=== PATIENT | male | born 1940 | race Caucasian/White ===

== ENCOUNTER 2021-12-21 14:27 | Inpatient (IN) | payer MEDICARE ==
[~2021-12-21] VITALS: Ht 177.8 cm; Wt 64.4 kg
[2021-12-21 14:37] VITALS: BP_SYST 93
--- NOTE | 2021-12-21 14:46 | NUR ---
Patient to ER bed 06 to gown for evaluation. Side rails up. Report given to Randi CHEN.
--- NOTE | 2021-12-21 14:48 | NUR ---
Assumed care of pt who came from [facility] c/o urinary retention x two days. 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 Pt has hx of kidney transplant, afib, alzheimers disease. Pt is calm and cooperative, VSS, is at the bedside. Will continue to monitor and provide care as ordered.
--- NOTE | 2021-12-21 15:19 | NUR ---
ER Dr. Bruce at bedside examining patient.
[2021-12-21 16:06] LABS: BASOPHILS % (AUTO) 0.3 % (0.0-2.0); EOSINOPHILS # (AUTO) 0.1 K/uL (0.0-0.4); EOSINOPHILS % (AUTO) 1.4 % (0.0-4.0); HEMATOCRIT 42.3 % (36-54); LYMPHOCYTES # (AUTO) 1.5 K/uL (1.0-5.5); LYMPHOCYTES % (AUTO) 19.1 % (20.5-51.5); MEAN CORPUSCULAR VOLUME 94 fL (79.0-98.0); MONOCYTES # (AUTO) 0.8 K/uL (0.0-1.0); MONOCYTES % (AUTO) 9.6 % (1.7-9.3); NEUTROPHILS # (AUTO) 5.5 K/uL (1.8-7.7); NEUTROPHILS % (AUTO) 69.6 % (40.0-70.0); PLATELET COUNT (AUTO) 153 K/uL (130-430); RED BLOOD CELL COUNT(AUTO) 4.49 MIL/uL (4.2-6.2); RED CELL DISTRIBUTION WIDTH 17.4 % (9.0-15.0); WHITE BLOOD COUNT (AUTO) 7.8 K/uL (4.8-10.8)
[2021-12-21 16:39] LABS: ANION GAP 14 (5-15); CALCIUM 9.8 mg/dL (8.4-11.0); CHLORIDE 97 mmol/L (98-107); CREATININE 2.65 mg/dL (0.55-1.30); GLUCOSE 110 mg/dL (70-99); UREA NITROGEN, BLOOD 60 mg/dL (8-21)
[2021-12-21] MEDS ORDERED: SODIUM BICARBONATE 8.4% JECT 150 MEQ in D5W 1,000 ML IVP STA (16:47)
[2021-12-21 16:53] LABS: ALANINE AMINOTRANSFERASE 12 U/L (12-78); ASPARTATE AMINOTRANSFERASE 22 U/L (10-37); TOTAL BILIRUBIN 0.8 mg/dL (0.0-1.0)
[2021-12-21 16:56] LABS: POTASSIUM 7.1 mmol/L (3.5-5.1)
[2021-12-21] MEDS ORDERED: CALCIUM GLUCONATE 1 GM/10 ML VIAL IVP ONE (17:00)
[2021-12-21] MEDS ORDERED: DEXTROSE 50% JECT 50 ML DISP.SYRIN IVP ONE (17:00)
[2021-12-21] MEDS ORDERED: FUROSEMIDE 20 MG/2 ML VIAL IVP ONE (17:00)
[2021-12-21] MEDS ORDERED: NACL 0.9% 1,000 ML IV ONE (17:00)
[2021-12-21] MEDS ORDERED: INSULIN REGULAR, HUMAN 10 UNITS/0.1 ML, 3 ML VIAL IVP ONE (17:00)
[2021-12-21 17:17] LABS: BILIRUBIN,URINE NEGATIVE (NEGATIVE); BLOOD, URINE 4+ (NEGATIVE); CLARITY/URINE TURBID (CLEAR); COLOR,URINE BROWN (YELLOW); GLUCOSE,URINE NEGATIVE (NEGATIVE); KETONES,URINE NEGATIVE (NEGATIVE); LEUKOCYTE ESTERASE ,URINE 4+ (NEGATIVE); NITRITE, URINE NEGATIVE (NEGATIVE); PROTEIN URINE 3+ (NEGATIVE)
[2021-12-21 17:18] LABS: UROBILINOGEN,URINE 0.2 (0.2-1.0)
[2021-12-21 17:19] LABS: BACTERIA,URINE MODERATE /HPF (None Seen); RBC,URINE 20-50 /HPF (0-3); WBC,URINE >100 /HPF (0-3)
[2021-12-21] MEDS ORDERED: SODIUM BICARBONATE 8.4% JECT 50 MEQ/50 ML SYRINGE ONE ×2 (17:38→18:14)
[2021-12-21] MEDS ORDERED: cefTRIAXone 1 GM in D5W 50 ML IV ONE (19:30)
--- NOTE | 2021-12-21 19:45 | NUR ---
Note lance in EDM - 12/21/21 at 1954 by [id number] Admit bed requested Patient will be admitted to care of Dr. MAGDALENO Admitted to TELE unit. Diagnosis MANUEL, [facility] Inpatient (Yes or No) YES Observation (Yes or No) NO Orientation concerns or request close to nursing station (Yes or No) NO Covid Status PENDING On vent or bipap NO Isolation requirements NO Needs a sitter NO From Home (Yes or if No enter name of facility) YES Requires Dialysis (Yes or No) NO Med Rec Completed (Yes of No) PENDING MADDEN CALL
--- NOTE | 2021-12-21 19:45 | NUR ---
Pt A&O x1, only answers to name. Pt response to verbal stimuli, but is not answering all questions. VSS at this time. Safety precuations in place and connected to monitor.
--- NOTE | 2021-12-21 20:11 | NUR ---
Admit bed requested Patient will be admitted to care of Dr. MAGDALENO Admitted to TELE unit. Diagnosis MANUEL, [facility] Inpatient (Yes or No) YES Observation (Yes or No) NO Orientation concerns or request close to nursing station (Yes or No) NO Covid Status PENDING On vent or bipap NO Isolation requirements NO Needs a sitter NO From Home (Yes or if No enter name of facility) YES Requires Dialysis (Yes or No) NO Med Rec Completed (Yes of No) PENDING MADDEN CALL
--- NOTE | 2021-12-21 20:12 | NUR ---
Dr. Gee made aware that blood cultures have no been collected and will need to hold on IV antibiotics until cultures collected.
[2021-12-21] MEDS ORDERED: cefTRIAXone 1 GM VIAL ONE (20:19)
[2021-12-21] MEDS ORDERED: CIPR500T5 PO (20:32)
[2021-12-21] MEDS ORDERED: MELA5TAB12 PO (20:33)
[2021-12-21] MEDS ORDERED: WARF-66 PO (20:34)
[2021-12-21] MEDS ORDERED: LOPE2CAP PO (20:35)
[2021-12-21] MEDS ORDERED: FINA5TAB3 PO (20:36)
[2021-12-21] MEDS ORDERED: PRED5TAB PO (20:36)
[2021-12-21] MEDS ORDERED: AMIO200T66 PO (20:37)
[2021-12-21] MEDS ORDERED: VITA1CAP PO (20:38)
[2021-12-21] MEDS ORDERED: PANT20TA2 PO (20:40)
[2021-12-21] MEDS ORDERED: PRO40 PO (20:43)
[2021-12-21 20:48] LABS: ANION GAP 13 (5-15); CALCIUM 10.4 mg/dL (8.4-11.0); CHLORIDE 99 mmol/L (98-107); CREATININE 2.62 mg/dL (0.55-1.30); GLUCOSE 114 mg/dL (70-99); UREA NITROGEN, BLOOD 60 mg/dL (8-21)
[2021-12-21] MEDS ORDERED: XALEYE OP (20:54)
[2021-12-21] MEDS ORDERED: CEL250 PO (20:55)
[2021-12-21 20:57] LABS: POTASSIUM 6.3 mmol/L (3.5-5.1)
[2021-12-21] MEDS ORDERED: BRI.2% EACH EYE ×2 (20:58→21:00)
[2021-12-21] MEDS ORDERED: TACR0.5C PO (21:01)
[2021-12-21] MEDS ORDERED: ITRA100C3 PO (21:05)
[2021-12-21] MEDS ORDERED: DORZ10DR13 EACH EYE (21:06)
[2021-12-21] MEDS ORDERED: ASPI-1393 PO (21:07)
--- NOTE | 2021-12-21 21:08 | NUR ---
Medication reconciliation completed with information provided by [facility]. Any prior medication reconciliation on file was reviewed and corrected.
--- NOTE | 2021-12-21 21:40 | NUR ---
Admitted to TELE unit. Diagnosis MANUEL, [facility] Inpatient (Yes or No) YES Observation (Yes or No) NO Orientation concerns or request close to nursing station (Yes or No) NO Covid Status PENDING On vent or bipap NO Isolation requirements NO Needs a sitter NO From Home (Yes or if No enter name of facility) NO, FROM ARS FACILITY Requires Dialysis (Yes or No) NO Med Rec Completed (Yes of No) YES
[2021-12-21] MEDS ORDERED: SODIUM POLYSTYRENE SULFONATE 15 GM/60 ML UDBTL PO ONE (21:45)
[2021-12-21] MEDS: LOPERAMIDE HCL 2 MG CAPSULE PO SCH (22:00)
[2021-12-21] MEDS ORDERED: cefTRIAXone 1 GM IVPB PREMIX 50 ML IV ONE (22:00)
--- NOTE | 2021-12-21 22:10 | NUR ---
1 L NS AT BOLUS RATE STARTED PER VERBAL ORDER OF DR MAGDALENO
[2021-12-21] MEDS ORDERED: NACL 0.9% 1,000 ML IV SCH (22:15)
--- NOTE | 2021-12-21 23:05 | NUR ---
ADMISSION NOTE Received patient from ER via rui, received report from joe/ GUSTAVO. Patient admitted with diagnosis of acute kidney injury anddehydration. Patient oriented to hospital routine, call light, toileting and safety unable to follow due to medical condition
--- NOTE | 2021-12-21 23:10 | NUR ---
Patient will be admitted to care of Dr Lind. Admitted to Tele unit. Will go to room 105B. Belongings list completed. Complete and up to date summary report printed. SBAR report to be given at bedside with opportunity for questions.
[2021-12-21 23:21] VITALS: BP_SYST 110
[2021-12-21] MEDS ORDERED: PIPERACILLIN/TAZOBACTAM 2.25 GM VIAL IV ONE (23:25)
--- NOTE | 2021-12-21 23:30 | NUR ---
po MEDS given with aspiration precaution.
[2021-12-21] MEDS: NACL 0.9% 1,000 ML IV SCH (23:31)
[2021-12-21] MEDS: PIPERACILLIN/TAZO 2.25G/DEX-IS 50 ML IV SCH (23:32)
--- NOTE | 2021-12-22 02:30 | NUR ---
PATIENT RESTING: Patient resting quietly. No acute distress noted. Vital signs within normal range.,repositioned
[2021-12-22 02:33] VITALS: BP_SYST 100
[2021-12-22] MEDS ORDERED: PIPERACILLIN/TAZOBACTAM 2.25 GM VIAL IV ONE (03:28)
[2021-12-22 03:30] LABS: INR 3.2 (0.80-1.20)
[2021-12-22] MEDS: NACL 0.9% 1,000 ML IV SCH ×2 (03:30→15:30)
[2021-12-22 03:36] LABS: PROTHROMBIN TIME 30.2 SECS (9.5-12.5)
[2021-12-22 04:03] LABS: HEMATOCRIT 35.2 % (36-54); MEAN CORPUSCULAR VOLUME 93 fL (79.0-98.0); PLATELET COUNT (AUTO) 115 K/uL (130-430); RED BLOOD CELL COUNT(AUTO) 3.77 MIL/uL (4.2-6.2); RED CELL DISTRIBUTION WIDTH 17.5 % (9.0-15.0); WHITE BLOOD COUNT (AUTO) 5.3 K/uL (4.8-10.8)
[2021-12-22 04:04] LABS: BASOPHILS % (AUTO) 0.5 % (0.0-2.0); EOSINOPHILS # (AUTO) 0.1 K/uL (0.0-0.4); EOSINOPHILS % (AUTO) 2.8 % (0.0-4.0); LYMPHOCYTES # (AUTO) 0.9 K/uL (1.0-5.5); LYMPHOCYTES % (AUTO) 16.4 % (20.5-51.5); MONOCYTES # (AUTO) 0.5 K/uL (0.0-1.0); MONOCYTES % (AUTO) 9.5 % (1.7-9.3); NEUTROPHILS # (AUTO) 3.7 K/uL (1.8-7.7); NEUTROPHILS % (AUTO) 70.8 % (40.0-70.0)
[2021-12-22 04:06] LABS: ANION GAP 12 (5-15); CALCIUM 9.1 mg/dL (8.4-11.0); CHLORIDE 104 mmol/L (98-107); CREATININE 2.17 mg/dL (0.55-1.30); GLUCOSE 119 mg/dL (70-99); POTASSIUM 5.3 mmol/L (3.5-5.1); UREA NITROGEN, BLOOD 51 mg/dL (8-21)
[2021-12-22 04:15] LABS: ALANINE AMINOTRANSFERASE 17 U/L (12-78); ALBUMIN 2.3 g/dL (3.4-4.8); ASPARTATE AMINOTRANSFERASE 17 U/L (10-37); PHOSPHORUS 3.2 mg/dL (2.7-4.5); TOTAL BILIRUBIN 0.7 mg/dL (0.0-1.0)
--- NOTE | 2021-12-22 04:40 | NUR ---
Colostomy care given , no leaking.
[2021-12-22] MEDS: PIPERACILLIN/TAZO 2.25G/DEX-IS 50 ML IV SCH ×3 (05:06→19:00)
--- NOTE | 2021-12-22 05:08 | NUR ---
CONSULTATION PAGED/CALLED Reason for Consultation: ELEVATED TROP Person Who was Notified: CHARIS Consulting Physician: NEELAM Pin Or Clip Fastener Specialty: CARDIO Ordering Physician: RASTA
--- NOTE | 2021-12-22 05:16 | NUR ---
CONSULTATION PAGED/CALLED Reason for Consultation: RENAL FAILURE Person Who was Notified: CHARIS Consulting Physician: DR.BHASIN PATRICK FOR [employer]rentice Specialty: NEPHRO Ordering Physician:
[2021-12-22] MEDS ORDERED: NACL 0.9% 1,000 ML IV ONE (05:30)
[2021-12-22] MEDS: LOPERAMIDE HCL 2 MG CAPSULE PO SCH ×3 (06:00→20:16)
[2021-12-22 08:00] VITALS: BP_SYST 90
[2021-12-22] MEDS ORDERED: WARFARIN SODIUM 2 MG TABLET PO SCH (09:00)
[2021-12-22] MEDS ORDERED: NACL 0.9% 1,000 ML IV SCH (09:00)
[2021-12-22] MEDS: VITAMIN B COMPLEX 1 CAP/TAB PO SCH (09:00)
[2021-12-22] MEDS: FINASTERIDE 5 MG TABLET (PROSCAR) PO SCH (09:00)
[2021-12-22] MEDS ORDERED: BRIMONIDINE TARTRATE 0.2% 5 mL EYE DROPS EACH EYE SCH (09:00)
[2021-12-22] MEDS: PANTOPRAZOLE SODIUM 40 MG TAB PO SCH ×2 (09:00→20:15)
[2021-12-22] MEDS: TACROLIMUS ANHYDROUS 0.5 MG CAPSULE (PROGRAF) PO SCH ×2 (09:00→20:16)
[2021-12-22] MEDS: AMIODARONE HCL 200 MG TABLET PO SCH (09:00)
--- NOTE | 2021-12-22 10:00 | NUR ---
CM: faxed transfer to network order to [facility] de[facility], and requested the assignment to call back to discuss the dcp.
[2021-12-22] MEDS: predniSONE 5 MG TABLET PO SCH (11:12)
[2021-12-22 11:28] VITALS: BP_SYST 91
[2021-12-22] MEDS: BRIMONIDINE TARTRATE 0.2% 5 mL EYE DROPS EACH EYE SCH ×2 (14:15→20:15)
[2021-12-22] MEDS: DORZOLAMIDE HCL/TIMOLOL MAL. 10 ML EYE DROPS (COSOPT) EACH EYE SCH ×2 (14:15→20:17)
[2021-12-22] MEDS: mycophenolate mofetiL 250 MG CAPSULE PO SCH ×2 (14:16→20:16)
[2021-12-22] MEDS: ITRACONAZOLE 100 MG CAPSULE PO SCH (14:19)
[2021-12-22] MEDS: ASPIRIN 81 MG TABLET(ECOTRIN) PO SCH (15:20)
[2021-12-22 15:32] VITALS: BP_SYST 100
[2021-12-22] MEDS: LATANOPROST 2.5 ML DROPS (XALATAN) OP SCH ×2 (19:02→20:15)
[2021-12-22 20:00] VITALS: BP_SYST 112
[2021-12-22] MEDS ORDERED: MELATONIN 5 MG TABLET PO SCH (21:00)
--- NOTE | 2021-12-22 22:58 | NUR ---
Patient in bed. No acute distress noted. Turned repositioned q2. Will continue to monitor.
[2021-12-23] VITALS: BP_SYST 110
[2021-12-23] MEDS: PIPERACILLIN/TAZO 2.25G/DEX-IS 50 ML IV SCH ×3 (00:21→11:43)
[2021-12-23] MEDS: LOPERAMIDE HCL 2 MG CAPSULE PO SCH ×2 (04:15→14:04)
[2021-12-23 07:07] LABS: BASOPHILS % (AUTO) 0.4 % (0.0-2.0); EOSINOPHILS # (AUTO) 0.2 K/uL (0.0-0.4); EOSINOPHILS % (AUTO) 3.5 % (0.0-4.0); HEMATOCRIT 36.7 % (36-54); MEAN CORPUSCULAR VOLUME 96 fL (79.0-98.0); MONOCYTES # (AUTO) 0.3 K/uL (0.0-1.0); MONOCYTES % (AUTO) 6.7 % (1.7-9.3); NEUTROPHILS # (AUTO) 3.6 K/uL (1.8-7.7); NEUTROPHILS % (AUTO) 69.4 % (40.0-70.0); PLATELET COUNT (AUTO) 119 K/uL (130-430); RED BLOOD CELL COUNT(AUTO) 3.83 MIL/uL (4.2-6.2); RED CELL DISTRIBUTION WIDTH 17.5 % (9.0-15.0); WHITE BLOOD COUNT (AUTO) 5.2 K/uL (4.8-10.8)
[2021-12-23 07:14] LABS: ALANINE AMINOTRANSFERASE 17 U/L (12-78); ALBUMIN 2.4 g/dL (3.4-4.8); ANION GAP 12 (5-15); ASPARTATE AMINOTRANSFERASE 21 U/L (10-37); CALCIUM 8.9 mg/dL (8.4-11.0); CHLORIDE 105 mmol/L (98-107); CREATININE 1.86 mg/dL (0.55-1.30); GLUCOSE 90 mg/dL (70-99); TOTAL BILIRUBIN 0.5 mg/dL (0.0-1.0); UREA NITROGEN, BLOOD 38 mg/dL (8-21)
[2021-12-23 07:19] LABS: INR 3.5 (0.80-1.20); PROTHROMBIN TIME 32.9 SECS (9.5-12.5)
[2021-12-23 07:40] VITALS: BP_SYST 113
--- NOTE | 2021-12-23 07:40 | NUR ---
OPEN NOTE Received report from nightshift nurse. Patient is laying in bed resting. Patient A/O x 1-2, Polish speaking. No notable signs of pain, no sob, no distress. IV to Left foot 20 g patent on infusion pump. Colostomy bag intact and obrien bag draining to gravity yellow urine. Patient on Room air saturations at 99%. All needs met at this time. Safety checks in place, bed is locked in lowest position, will continue to monitor.
[2021-12-23] MEDS: FINASTERIDE 5 MG TABLET (PROSCAR) PO SCH (08:40)
[2021-12-23] MEDS: VITAMIN B COMPLEX 1 CAP/TAB PO SCH (08:40)
[2021-12-23] MEDS: TACROLIMUS ANHYDROUS 0.5 MG CAPSULE (PROGRAF) PO SCH (08:41)
[2021-12-23] MEDS: mycophenolate mofetiL 250 MG CAPSULE PO SCH (08:42)
[2021-12-23] MEDS: AMIODARONE HCL 200 MG TABLET PO SCH (08:42)
[2021-12-23] MEDS: ITRACONAZOLE 100 MG CAPSULE PO SCH (08:44)
[2021-12-23] MEDS: ASPIRIN 81 MG TABLET(ECOTRIN) PO SCH (08:44)
[2021-12-23] MEDS: PANTOPRAZOLE SODIUM 40 MG TAB PO SCH (08:44)
[2021-12-23] MEDS: predniSONE 5 MG TABLET PO SCH (08:44)
[2021-12-23] MEDS: BRIMONIDINE TARTRATE 0.2% 5 mL EYE DROPS EACH EYE SCH (08:45)
[2021-12-23] MEDS: DORZOLAMIDE HCL/TIMOLOL MAL. 10 ML EYE DROPS (COSOPT) EACH EYE SCH (08:45)
--- NOTE | 2021-12-23 08:57 | NUR ---
DISCHARGE PLANNING Faxed order stable to transfer order to [facility] along with updated pt info, direct nsg station #, Dr Diogo henderson, & my direct ph number.
[2021-12-23 09:43] LABS: INR 3.9 (0.80-1.20); PROTHROMBIN TIME 36.3 SECS (9.5-12.5)
--- NOTE | 2021-12-23 10:42 | NUR ---
Jeremiah Call Received a call from [facility] requesting report and baseline vitals. She stated she will be calling back with a pickup time once available. Patient and are aware.
[2021-12-23 11:42] VITALS: BP_SYST 102
--- NOTE | 2021-12-23 12:15 | NUR ---
Patient Rounds Patient is laying in bed resting. No notable signs of pain, no sob, no distress. Colostomy bag intact and obrien bag draining to gravity yellow urine. Patient on Room air saturations at 99%. All needs met at this time. Safety checks in place, bed is locked in lowest position, will continue to monitor.
--- NOTE | 2021-12-23 13:15 | NUR ---
Colostomy Bag Colostomy Bag noted to be leaking. Colostomy bag was changed.
[2021-12-23] MEDS: NACL 0.9% 1,000 ML IV SCH (13:30)
--- NOTE | 2021-12-23 13:43 | NUR ---
Daniels Call Spoke with Lupis from [place] stating that she will be calling me back with patient's room number, bean picker machine operator time and a phone number to call to give report. Awaiting further instructions.
--- NOTE | 2021-12-23 14:37 | NUR ---
DISCHARGE PLANNING Received call from pt's nurse, Daniels called & may have bed later today. [place] [facility] [place]. Spoke with pt and at bedside and both agreeable with transfer to [facility].
[2021-12-23 15:29] VITALS: BP_SYST 103
[2021-12-23 16:28] VITALS: BP_SYST 103
--- NOTE | 2021-12-23 16:32 | NUR ---
Transfer report Gave report to Yanet at [facility]. Patient to be picked up by 1700. If he is not picked up by then I will need to call Lupis SORIA at [facility] to get status update.
--- NOTE | 2021-12-23 17:50 | NUR ---
PT TRANSFERRED Report given to GUSTAVO Holt at 1630. Transfer packet with Transfer Orders and Medication Reconciliation form given to EMT with report. Exitcare provided. [facility] ID band removed, replaced with ID band with pt's name and . IV site intact per Jeremiah RN request, patent on SL. All belongings sent with patient. Patient left floor via gurney escorted by EMT in no distress.
--- NOTE | 2021-12-24 08:19 | NUR ---
Dispo code 02
== END 2021-12-23 17:51 | disposition short-term general hospital (02) | DRG 698 ==
LOC: SED 14:27 → STU 20:07
PROVIDERS: ADMIT Internal Medicine; ATTEND Internal Medicine
DX: T86.13 Kidney transplant infection (principal); E43 Unspecified severe protein-calorie malnutrition; G93.41 Metabolic encephalopathy; N17.0 Acute kidney failure with tubular necrosis; D84.9 Immunodeficiency, unspecified; E87.1 Hypo-osmolality and hyponatremia; N12 Tubulo-interstitial nephritis, not specified as acute or chronic; N39.0 Urinary tract infection, site not specified; E86.0 Dehydration; E87.5 Hyperkalemia; I48.0 Paroxysmal atrial fibrillation; N18.9 Chronic kidney disease, unspecified; Z20.822 Contact with and (suspected) exposure to COVID-19; D63.8 Anemia in other chronic diseases classified elsewhere; I50.9 Heart failure, unspecified; Y83.0 Surgical operation with transplant of whole organ as the cause of abnormal reaction of the patient, or of later complication, without mention of misadventure at the time of the procedure; Z79.01 Long term (current) use of anticoagulants; Z79.82 Long term (current) use of aspirin; Z68.20 Body mass index [BMI] 20.0-20.9, adult; Z79.899 Other long term (current) drug therapy; Z93.2 Ileostomy status
CPT/HCPCS: 36415; 71045; 76770; 80048; 80053; 81000; 83605; 83880; 84100; 84484; 85025; 85610-TC; 87040; 87086; 93005; 93306; 96365; 96375; 97110-GP; 97530-GP; 99291; G0378; J0610; J0696; J1815; J1940; J2543; J7060; J7507; J7512; J7517

== ENCOUNTER 2022-02-01 01:17 | Emergency (ER) | payer MEDICARE ==
[~2022-02-01] VITALS: Ht 167.6 cm; Wt 68.0 kg
[~2022-02-01 01:17] MED LIST: AMIO200T66 PO; ASPI-1393 PO; BRI.2% EACH EYE; CEL250 PO; CIPR500T5 PO; DORZ10DR13 EACH EYE; FINA5TAB3 PO; ITRA100C3 PO; LOPE2CAP PO; MELA5TAB12 PO; PRED5TAB PO; PRO40 PO; TACR0.5C PO; VITA1CAP PO; WARF-66 PO; XALEYE OP
[2022-02-01 01:27] VITALS: BP_SYST 93
--- NOTE | 2022-02-01 01:45 | NUR ---
RECEIVED PT BIBA C/O BLOOD IN URINE AND HYPOTENSIVE ON SCENE. PER MEDIC REPORT PT LIVES IN ASSISTED LIVING FACILITY OR BOARD AND CARE. DENIES FEVER, UNABLE TO GET OTHER INFO FROM MEDICS AT THIS TIME. PT ANABLE TO PROVIDE MEDICAL DX WELL. PT AWAKE AND ALERT ORIENTED TO HIS NAME ONLY, UNABLE TO GET BASELINE GCS ON THIS PATIENT. NOTED COLOSTOMY BAG WITH YELLOW STOOL, STAGE 4 PRESSURE ULCER ON COCCYX AND GENERALIZED SKIN TEAR AND SCAB WOUNDS TO BUE AND BLE. PT GOWNED AND PLACED ON CARDIAC MONITORS.
--- NOTE | 2022-02-01 01:50 | NUR ---
# 16 FR Obrien catheter with use of sterile technique. Immediate return of 20 cc OF sediment with blood urine noted. Bedside drainage bag placed below level of bladder. Urine sample collected and sent to lab. Pt tolerated procedure . Patient arrived with obrien in place, changed due to standard of practice prior to admission. Patient unable to toilet self.
[2022-02-01] MEDS ORDERED: MORPHINE 2 MG/ML INJ. SYRINGE IVP ONE (02:15)
[2022-02-01] MEDS ORDERED: LORazepam 2 MG/ML VIAL IVP ONE (02:15)
[2022-02-01] MEDS ORDERED: NACL 0.9% 1,000 ML IV ONE ×3 (02:15→06:30)
[2022-02-01 02:42] LABS: BILIRUBIN,URINE 1+ (NEGATIVE); BLOOD, URINE 3+ (NEGATIVE); CLARITY/URINE SL CLOUDY (CLEAR); COLOR,URINE BROWN (YELLOW); GLUCOSE,URINE NEGATIVE (NEGATIVE); KETONES,URINE NEGATIVE (NEGATIVE); LEUKOCYTE ESTERASE ,URINE 2+ (NEGATIVE); NITRITE, URINE NEGATIVE (NEGATIVE); PROTEIN URINE 2+ (NEGATIVE); UROBILINOGEN,URINE 0.2 (0.2-1.0)
[2022-02-01 02:43] LABS: BASOPHILS % (AUTO) 0.3 % (0.0-2.0); EOSINOPHILS # (AUTO) 0.1 K/uL (0.0-0.4); EOSINOPHILS % (AUTO) 2.3 % (0.0-4.0); HEMATOCRIT 38.3 % (36-54); HEMOGLOBIN 12.5 g/dL (14.0-18.0); LYMPHOCYTES # (AUTO) 0.9 K/uL (1.0-5.5); LYMPHOCYTES % (AUTO) 16.7 % (20.5-51.5); MEAN CORPUSCULAR HEMOGLOBIN 32 pg (27-31); MEAN CORPUSCULAR HGB CONC 33 % (32-36); MEAN CORPUSCULAR VOLUME 97 fL (79.0-98.0); MONOCYTES # (AUTO) 0.5 K/uL (0.0-1.0); MONOCYTES % (AUTO) 8.5 % (1.7-9.3); NEUTROPHILS % (AUTO) 72.2 % (40.0-70.0); PLATELET COUNT (AUTO) 124 K/uL (130-430); RED BLOOD CELL COUNT(AUTO) 3.96 MIL/uL (4.2-6.2); WHITE BLOOD COUNT (AUTO) 5.6 K/uL (4.8-10.8)
[2022-02-01 03:35] LABS: ANION GAP 12 (5-15); CALCIUM 9.4 mg/dL (8.4-11.0); CHLORIDE 111 mmol/L (98-107); CREATININE 1.94 mg/dL (0.55-1.30); GLUCOSE 116 mg/dL (70-99); UREA NITROGEN, BLOOD 62 mg/dL (8-21)
[2022-02-01 03:40] LABS: ALANINE AMINOTRANSFERASE 25 U/L (12-78); ALBUMIN 2.6 g/dL (3.4-4.8); ASPARTATE AMINOTRANSFERASE 57 U/L (10-37); TOTAL BILIRUBIN 0.5 mg/dL (0.0-1.0)
[2022-02-01 04:03] LABS: RBC,URINE 80-100 /HPF (0-3)
[2022-02-01 04:05] LABS: BACTERIA,URINE None Seen /HPF (None Seen); MUCUS,URINE None Seen /LPF (None Seen); YEAST,URINE Few /HPF (None Seen)
[2022-02-01] MEDS ORDERED: DIPHENHYDRAMINE INJ 50 MG/ML VIAL IVP ONE (04:30)
--- NOTE | 2022-02-01 04:32 | NUR ---
DR. LOVE AT BEDSIDE FOR RE EVAL. PER MD GIVE BENADRYL 50 MG IVP AND NS 1L BOLUS.
[2022-02-01] MEDS ORDERED: SODIUM BICARBONATE 8.4% VIAL 50 MEQ/50 ML VIAL INJ ONE (05:15)
[2022-02-01] MEDS ORDERED: cefTRIAXone 1 GM IVPB PREMIX 50 ML IV ONE (05:15)
[2022-02-01] MEDS ORDERED: DIPHENHYDRAMINE INJ 50 MG/ML VIAL ONE (05:30)
[2022-02-01] MEDS ORDERED: GABAPENTIN 100 MG CAPSULE PO ONE (06:00)
[2022-02-01] MEDS ORDERED: SODIUM BICARBONATE 8.4% JECT 50 MEQ/50 ML SYRINGE ONE (06:20)
[2022-02-01] MEDS ORDERED: cefTRIAXone 1 GM VIAL ONE (06:21)
[2022-02-01] MEDS ORDERED: HYDROmorphone 1 MG/ML INJ. CARTRIDGE IVP ONE (06:30)
--- NOTE | 2022-02-01 06:41 | NUR ---
INFORMED PT AT BEDSIDEON PLAN OF CARE. MADE HER AWARE THAT PT WILL BE TRANSFERRING TO [place] AND [facility] VERBALIZED UNDERSTANDING
[2022-02-01 11:15] LABS: ANION GAP 8 (5-15); CALCIUM 8.3 mg/dL (8.4-11.0); CHLORIDE 116 mmol/L (98-107); CREATININE 1.72 mg/dL (0.55-1.30); GLUCOSE 90 mg/dL (70-99); UREA NITROGEN, BLOOD 50 mg/dL (8-21)
[2022-02-01 11:20] LABS: ALANINE AMINOTRANSFERASE 18 U/L (12-78); ALBUMIN 2.1 g/dL (3.4-4.8); ASPARTATE AMINOTRANSFERASE 44 U/L (10-37); TOTAL BILIRUBIN 0.5 mg/dL (0.0-1.0)
[2022-02-01 11:27] LABS: INR 1.3 (0.80-1.20); PROTHROMBIN TIME 12.7 SECS (9.5-12.5)
--- NOTE | 2022-02-01 11:30 | NUR ---
Jeremiah ED Dr. Dulce Park
--- NOTE | 2022-02-01 13:19 | NUR ---
Patient to be transferred to [place]. Is being transferred due to higher level of care. Receiving facility has accepting physician and available space. ER physician Dr. Christianson has signed transfer form. Patient or responsible democrat has agreed to transfer and signed form. Patient belongings inventoried and will be sent with patient. Copy of nursing notes, lab reports, EKG, Physicians Orders and X-rays to be sent with patient. Report called to [facility] at receiving facility. Receiving physician is Dr. Dulce Park. [facility] has been called for transfer. ETA is 1300.
[2022-02-01 13:35] VITALS: BP_SYST 94
== END 2022-02-01 13:19 | disposition short-term general hospital (02) ==
LOC: SED 01:17
DX: E86.0 Dehydration (principal); E87.20 Acidosis, unspecified; G93.41 Metabolic encephalopathy; N17.9 Acute kidney failure, unspecified; E87.5 Hyperkalemia; Z79.899 Other long term (current) drug therapy; Z20.822 Contact with and (suspected) exposure to COVID-19
CPT/HCPCS: 99291; 96361; 96365; 96375; 87426; 81000; 85025; 85610; 85730; 87081; 36415; 93005; 71045; 36600; 82803; 83605; 80053; J0696; J1200; J2060; J1170; J2270; J7030